=== PATIENT | female | born 1960 ===

== ENCOUNTER 2020-12-04 11:38 | Outpatient (REF) | payer SELFPAY ==
--- NOTE | 2020-12-04 11:51 | MHC.AU.P13 ---
Hearing Instrument Maintenance Date of Visit: 12/04/20 Right Ear: Cargo Service Supervisor: Phonak Model: AUDEO M50-312 Serial Number: [id number] Repair Warranty: 02/20/2022 ORIGINAL WARRANTY Loss and Damage Warranty: 02/20/2022 Battery Size: 312 Color: CHESTNUT Hospice Massage Therapist: 0M Type of Dome: SMALL VENTED Type of Wax Guard: CERUSHIELD Left Ear: Cargo Service Supervisor: Phonak Model: AUDEO M50-312 Serial Number: [id number] RepairWarranty: 02/20/2022 ORIGINAL WARRANTY Loss and Damage Warranty: 02/20/2022 Battery Size: 312 Color: CHESTNUT Hospice Massage Therapist: 0M Type of Dome: SMALL OPEN Type of Wax Guard: CERUSHIELD Follow-Up Summary: MOSLEY Maintenance - both hearing aids cleaned, wax guards replaced, left small open dome and right small vented dome both replaced - now amplifying clearly. Signature: Provider: EVA Dickinson-HIS
== END 2020-12-04 11:39 | disposition home or self-care (01) ==
LOC: HO.HAP 11:38
PROVIDERS: Visit Provider Internal Medicine
DX: Z13.89 Encounter for screening for other disorder (principal)

== ENCOUNTER 2021-08-19 10:55 | Outpatient (REF) | payer SELFPAY ==
--- NOTE | 2021-08-19 12:48 | MHC.AU.P13 ---
Hearing Instrument L&D Date of Visit: 08/19/21 Right Ear: Volleyball Assistant Coach: Phonak Model: AUDEO M50-312 Serial Number: [id number] Repair Warranty: 02/20/2022 ORIGINAL WARRANTY Loss and Damage Warranty: 02/20/2022 Battery Size: 312 Color: CHESTNUT Heel Buffer: 0M Type of Dome: SMALL VENTED Type of Wax Guard: CERUSHIELD Dispensed By: [facility] Date of Fittin12/01/2018 Left Ear: Volleyball Assistant Coach: Phonak Model: AGAPITOEO M50-312 Serial Number: [id number] Repair Warranty: 02/20/2022 ORIGINAL WARRANTY Loss and Damage Warranty: 02/20/2022 Battery Size: 312 Color: CHESTNUT Heel Buffer: 0M Type of Dome: SMALL OPEN Type of Wax Guard: CERUSHIELD Dispensed By: [facility] Date of Fittin12/01/2018 Follow-Up Summary: Patient completed loss and damage form for left lost hearing aid. PAID $300.00 TODAY PER WEAVING SUPERVISOR REQUEST. Right hearing aid cleaned, replaced wax guard, dome, and retention tail - amplifying clearly. Recommendations: Recommendations: Hearing instrument follow-up or maintenance as needed. Diagnosis Code(s): Primary Diagnosis: H90.6 Mixed Hearing Loss, Bilateral Signature: Provider: LUIZ Dickinson
== END 2021-08-19 10:56 | disposition home or self-care (01) ==
LOC: HO.HAP 10:55
PROVIDERS: Visit Provider Internal Medicine
DX: Z46.1 Encounter for fitting and adjustment of hearing aid (principal); H90.6 Mixed conductive and sensorineural hearing loss, bilateral
CPT/HCPCS: V5299

== ENCOUNTER 2021-09-22 10:04 | Outpatient (REF) | payer SELFPAY ==
--- NOTE | 2021-09-22 10:30 | MHC.AU.HFU ---
Hearing Instrument Follow-Up- Binaural Date of Visit: 09/22/21 Right Ear: Entry Level Truck Driver: Phonak Model: AUDEO M50-312 Serial Number: [id number] Repair Warranty: 02/20/2022 ORIGINAL WARRANTY Loss and Damage Warranty: 02/20/2022 Battery Size: 312 Color: CHESTNUT Automation Qa Tester: 0M Type of Dome: SMALL VENTED Type of Wax Guard: CERUSHIELD Dispensed By: [facility] Date of Fittin12/01/2018 Left Ear: Entry Level Truck Driver: Phonak Model: KUSHALEO M50-312 Serial Number: [id number] Repair Warranty: 02/20/2022 ORIGINAL WARRANTY Loss and Damage Warranty: 02/20/2022 Battery Size: 312 Color: CHESTNUT Automation Qa Tester: 0M Type of Dome: SMALL OPEN Type of Wax Guard: CERUSHIELD Dispensed By: [facility] Date of Fittin12/01/2018 Follow-Up Summary: Fit the LEFT L&D replacement aid (patient paid $300.00 fee already on 08/19/2021). Performed firmware update for the right aid. Programmed both aids to 12/01/2018 settings and increased to 100% target per patient request. Advise audiologic re-evaluation. Recommendations: Hearing instrument follow-up or maintenance as needed.Please contact our clinic with any questions or concerns. Diagnosis Code(s): H90.6 Mixed Hearing Loss, Bilateral Services Performed: MOSLEY Non-Quantity Charges: HANC: NonBillable Event Signature: Provider: Kushal Wilson, [facility]
== END 2021-09-22 10:05 | disposition home or self-care (01) ==
LOC: HO.HAP 10:04
PROVIDERS: Visit Provider Internal Medicine
DX: Z13.89 Encounter for screening for other disorder (principal)

== ENCOUNTER 2022-07-24 10:51 | Outpatient (REF) | payer SELFPAY | END 2022-07-24 10:52 | disposition home or self-care (01) | LOC: HO.HAP 10:51 | PROVIDERS: Visit Provider Internal Medicine | DX: Z46.1 Encounter for fitting and adjustment of hearing aid (principal); H90.3 Sensorineural hearing loss, bilateral | CPT/HCPCS: 92700; V5299 ==

== ENCOUNTER 2022-10-28 14:32 | Outpatient (REF) | payer OTHER, SELFPAY | END 2022-10-28 14:33 | disposition home or self-care (01) | LOC: HO.SH 14:32 | PROVIDERS: Visit Provider Nurse Practitioner Acute Care | DX: H90.6 Mixed conductive and sensorineural hearing loss, bilateral (principal) | CPT/HCPCS: 92557; 92567 ==

== ENCOUNTER 2022-10-28 15:31 | Outpatient (REF) | payer SELFPAY | END 2022-10-28 15:32 | disposition home or self-care (01) | LOC: HO.HAP 15:31 | PROVIDERS: Visit Provider Internal Medicine | DX: Z46.1 Encounter for fitting and adjustment of hearing aid (principal); H90.6 Mixed conductive and sensorineural hearing loss, bilateral | CPT/HCPCS: 92593 ==

== ENCOUNTER 2022-11-20 11:24 | Outpatient (REF) | payer SELFPAY | END 2022-11-20 11:25 | disposition home or self-care (01) | LOC: HO.HAP 11:24 | PROVIDERS: Visit Provider Internal Medicine | DX: Z13.89 Encounter for screening for other disorder (principal) ==

== ENCOUNTER 2023-01-15 13:31 | Outpatient (REF) | payer SELFPAY ==
--- NOTE | 2023-01-15 14:21 | MHC.AU.HFU ---
Hearing Instrument Follow-Up- Binaural Date of Visit: 01/15/23 Right Ear: Supervisor Drapery Hanging Phonak Deysieo M50-312 #[id number], [place] Repair Warranty: 02/20/2022 ORIGINAL WARRANTY Loss and Damage Warranty: 02/20/2022 Battery Size: 312 Color: CHESTNUT Scheduling Manager: 0M Type of Dome: SMALL VENTED Type of Mold: Small Power Dome Type of Wax Guard: CERUSHIELD Dispensed By: [facility] Date of Fittin12/01/2018 Left Ear: Supervisor Drapery Hanging: Phonak Deysieo M50-312 #[id number], [place] Repair Warranty: 02/20/2022 ORIGINAL WARRANTY Loss and Damage Warranty: Used 08/26/2021 Battery Size: 312 Color: CHESTNUT Scheduling Manager: 0M Type of Dome: SMALL OPEN Type of Mold: Small Open Dome Type of Wax Guard: CERUSHIELD Dispensed By: [facility] Date of Fittin12/01/2018 Follow-Up Summary: Hearing Aid Problem - Patient reports both aids started to have static, right aid greater than left. Listening check confirmed patient's report. Visual inspection shows significant amount of corrosion in battery compartment and some debris is microphones, right greater than left. Cleaned aids, microphones, contacts with no improvement. Changed receivers with no improvement. Set up binaural loaners with patient's receivers and domes with much improved sound quality. Patient approved repair cost of $770.00. SHE WILL PAY 385.00 WHEN REPAIRS PICKED UP AND BALANCE WILL BE BILLED. Recommendations: Schedule appointment when aids received and programmed. Diagnosis Code(s):Primary Diagnosis: H90.3 Bilateral Sensorineural Hearing Loss Signature:Provider: Mary Wilson, [facility]
== END 2023-01-15 13:32 | disposition home or self-care (01) ==
LOC: HO.HAP 13:31
PROVIDERS: Visit Provider Internal Medicine
DX: Z13.89 Encounter for screening for other disorder (principal)

== ENCOUNTER 2023-03-02 10:04 | Outpatient (REF) | payer SELFPAY ==
--- NOTE | 2023-03-02 10:54 | MHC.AU.HFU ---
Hearing Instrument Follow-Up- Binaural Date of Visit: 03/02/23 Right Ear: Shaw Hallo M50-312 #[id number], [place] Repair Warranty: 01/23/2024 Loss and Damage Warranty: 01/23/2024 Battery Size: 312 Mineral Engineer: 0M Type of Dome: Small Power Dome Type of Wax Guard: CERUSHIELD Dispensed By: [facility] Date of Fittin12/01/2018 Left Ear: Shaw Hallo M50-312 #[id number], [place] Repair Warranty: 01/23/2024 Loss and Damage Warranty: 01/23/2024 Battery Size: 312 Mineral Engineer: 0M Type of Dome: Small Power Dome Type of Wax Guard: CERUSHIELD Dispensed By: [facility] Date of Fittin12/01/2018 Follow-Up Summary: The patient is here today to spanish moss picker her repaired hearing aids and to return loaner aids. Repaired hearing aids (new devices) were programmed to the patient's most recent audiogram. Acoustic recommendation in [employer] is power domes bilaterally. I applied this and re-ran the feedback mental health program manager. The patient reported a slightly loud but comfortable volume. Reviewed use of the volume control. Returned loaner aids. $770 total for the repair. Patient paid half $385 today and will be billed the balance of $385. Additional follow-up as needed. Diagnosis Code(s): Primary Diagnosis: H90.6 Mixed Hearing Loss, Bilateral Signature: Provider: Kushal Colin, [facility]
== END 2023-03-02 10:05 | disposition home or self-care (01) ==
LOC: HO.HAP 10:04
PROVIDERS: Visit Provider Internal Medicine
DX: Z46.1 Encounter for fitting and adjustment of hearing aid (principal); H90.6 Mixed conductive and sensorineural hearing loss, bilateral
CPT/HCPCS: V5014

== ENCOUNTER 2024-08-18 13:33 | Outpatient (REF) | payer SELFPAY | END 2024-08-18 13:34 | disposition home or self-care (01) | LOC: HO.HAP 13:33 | PROVIDERS: Visit Provider Internal Medicine | DX: Z46.1 Encounter for fitting and adjustment of hearing aid (principal); H90.6 Mixed conductive and sensorineural hearing loss, bilateral | CPT/HCPCS: 92593 ==